=== PATIENT | male | born 1955 | race Caucasian/White ===

== ENCOUNTER 2016-07-06 09:23 | Emergency (ER) | payer BC ==
[2016-07-06 09:13] LABS: URINE BILIRUBIN NEGATIVE (NEG); URINE BLOOD MODERATE (NEG); URINE GLUCOSE (UA) NEGATIVE (NEG); URINE KETONE NEGATIVE (NEG); URINE LEUKOCYTE ESTERASE POSITIVE (NEG); URINE NITRITE POSITIVE (NEG); URINE PROTEIN SMALL (NEG); URINE SPECIFIC GRAVITY 1.015 (1.003-1.030)
[2016-07-06 09:15] LABS: URINE APPEARANCE HAZY; URINE COLOR PALE YELLOW
[2016-07-06 09:22] LABS: URINE BACTERIA 4+
[2016-07-06 09:23] LABS: URINE EPITHELIAL CELLS N /[HPF] (0-10); URINE RBC 0-5 /[HPF] (0-5); URINE WBC 35-45 /[HPF] (0-5)
[~2016-07-06 09:23] MED LIST: ALKA-SELTZER O1 EAC1 PO; ANDROGEL; ANTI-INFLAMMATORY; ASPIRIN81 M1 PO; CYCLOBENZAPRINE5 M1 PO; KETOPROFEN PO; LIPITOR PO; LORTAB 10/500 T1 TAB PO; MUCINEX D ER T1 EAC2 PO; NORCO 5-325 TA1 EACH PO; ORUDIS PO; SENOKOT-S TABL1 EACH PO; SKELAXIN800 MG PO; TRAMADOL HCL50 M2 PO; VITAMIN C500 M6 PO; ZOFRAN4 MG PO; [UNRECOGNIZED DRUG - OTHER]
[2016-07-06] MEDS ORDERED: CIPRO500 M2 PO (09:47)
== END 2016-07-06 10:30 ==
LOC: EDMED 09:23
PROVIDERS: Emergency Medicine
PROC: 4A0D7BZ Measurement of Urinary Pressure, Via Natural or Artificial Opening (ICD-10-PCS; principal; 2016-07-06)
DX: N30.00 Acute cystitis without hematuria (principal); Z98.890 Other specified postprocedural states
CPT/HCPCS: J0696